=== PATIENT | female | born 1955 | race Caucasian/White ===

== ENCOUNTER 2024-02-01 13:50 | Observation (INO) ==
[2024-02-01 14:35] LABS: ABS Lymphocytes 0.8 10^3/uL (1.0-4.8); ABS Monocytes 0.2 10^3/uL (0.0-0.9); ABS Neutrophils 1.9 10^3/uL (1.5-7.6); Eosinophil % 0.2 %; Hematocrit 38.6 % (35-45); Hemoglobin 13.2 g/dL (11.5-14.3); Lymphocyte % 27.8 %; Mean Corpuscular Hemoglobin 28.9 pg (27-33); Mean Corpuscular Hgb Conc 34.1 g/dL (31-36); Mean Corpuscular Volume 84.7 fL (80-97); Mean Platelet Volume 7.6 fL (7.5-11.2); Nucleated Red Blood Cells % 0.1 %/100WBC (0.0-0.8); Platelet Count 192 10^3/uL (150-450); Red Blood Count 4.56 10^6/uL (3.63-4.92); Red Cell Distribution Width 14.1 % (12-17); White Blood Count 2.9 10^3/uL (3.8-11.8)
[2024-02-01 14:50] LABS: INR 0.98 (0.83-1.13)
[2024-02-01] MEDS: Ondansetron 4 mg VIAL 2 MG/ML 2 ml VIAL IV ONE (15:02)
[2024-02-01] MEDS: NS 0.9% 1000 ml BAG 1,000 ML IV ONE ×2 (15:03→18:11)
[2024-02-01 15:42] LABS: Albumin 4.2 g/dL (3.2-5.2); Albumin/Globulin Ratio 1.7 (1-3); Globulin 2.5 g/dL (2-4); Potassium 4.4 mmol/L (3.5-5.0); Total Bilirubin 0.5 mg/dL (0.2-1.0); Total Protein 6.7 g/dL (6.4-8.9); eGFR CKD-EPI 61.7 (>60)
[2024-02-01 16:30] LABS: High Sensitivity Troponin 1 Hr 56 pg/mL (<15)
[2024-02-01 18:13] LABS: High Sensitivity Troponin 3 Hr 83 pg/mL (<15)
[2024-02-01 18:14] LABS: Urine Appearance Clear; Urine Bilirubin Negative (Negative); Urine Blood Negative (Negative); Urine Color Yellow; Urine Glucose Negative (Negative); Urine Ketones Negative (Negative); Urine Nitrite Negative (Negative); Urine Protein Negative (Negative); Urine Specific Gravity 1.024 (1.002-1.030); Urine Urobilinogen Negative (Negative); Urine pH 5.5 (5.0-8.0)
[2024-02-01] MEDS: Iohexol 350 (CONTRAST) 500 ML MDV IV ONE (20:26)
[2024-02-01 20:49] LABS: Magnesium 1.9 mg/dL (1.9-2.7)
[2024-02-01] MEDS ORDERED: Senna TAB 8.6 mg TAB PO PRN (20:54)
[2024-02-01] MEDS ORDERED: Ondansetron 4 mg VIAL 2 MG/ML 2 ml VIAL IV PRN (20:54)
[2024-02-01 21:04] LABS: TSH Ultra Thyroid Stim Horm 1.12 mcIU/mL (0.34-5.60)
[2024-02-01] MEDS: Lactated Ringers 1000 ml BAG 1,000 ML IV SCH (21:44)
[2024-02-02 05:54] LABS: Hematocrit 32.2 % (35-45); Mean Corpuscular Hgb Conc 34.1 g/dL (31-36); Mean Corpuscular Volume 84.9 fL (80-97); Mean Platelet Volume 7.5 fL (7.5-11.2); Platelet Count 170 10^3/uL (150-450); Red Blood Count 3.79 10^6/uL (3.63-4.92); Red Cell Distribution Width 13.8 % (12-17); White Blood Count 2.2 10^3/uL (3.8-11.8)
[2024-02-02 06:55] LABS: Calcium 7.9 mg/dL (8.6-10.3); Creatinine, Serum 0.96 mg/dL (0.51-0.95); eGFR CKD-EPI 64.8 (>60)
[2024-02-02 07:25] LABS: ABS Neutrophils 0.5 10^3/uL (1.5-7.6)
[2024-02-02 07:29] LABS: ABS Lymphocytes 1.4 10^3/uL (1.0-4.8); ABS Monocytes 0.3 10^3/uL (0.0-0.9); Eosinophil % 1.4 %; Lymphocyte % 63.3 %; Nucleated Red Blood Cells % 0.2 %/100WBC (0.0-0.8)
[2024-02-02 08:01] LABS: C Reactive Protein 2.77 mg/L (<8.01)
[2024-02-02] MEDS: buPROPion SR 200 mg TAB.SR PO SCH (09:32)
[2024-02-02] MEDS: Enoxaparin 40 MG/0.4 ML SYR SUBCUT SCH (09:32)
[2024-02-02] MEDS: Sulfur Hexaflouride MICROSPHR 25 MG VIAL IV ONE (10:10)
[2024-02-02] MEDS: Cefepime 2 GM in Dextrose 2 GM/50 ML BAG IV SCH (10:25)
[2024-02-02 11:19] LABS: High Sensitivity Troponin 1 Hr 42 pg/mL (<15)
[2024-02-02 19:22] LABS: Ferritin 7.5 ng/mL (11-307)
[2024-02-02 19:26] LABS: Folate 11.31 ng/mL (5.90-24.80)
[2024-02-03] MEDS: Cefepime 2 GM in Dextrose 2 GM/50 ML BAG IV SCH (01:28)
[2024-02-03 06:01] LABS: Hematocrit 31.7 % (35-45); Hemoglobin 10.7 g/dL (11.5-14.3); Mean Corpuscular Hemoglobin 28.8 pg (27-33); Mean Corpuscular Hgb Conc 33.8 g/dL (31-36); Mean Corpuscular Volume 85.2 fL (80-97); Mean Platelet Volume 7.9 fL (7.5-11.2); Platelet Count 161 10^3/uL (150-450); Red Blood Count 3.72 10^6/uL (3.63-4.92); Red Cell Distribution Width 13.9 % (12-17); White Blood Count 2.3 10^3/uL (3.8-11.8)
[2024-02-03 06:27] LABS: Calcium 8.3 mg/dL (8.6-10.3); Creatinine, Serum 0.93 mg/dL (0.51-0.95); Potassium 3.9 mmol/L (3.5-5.0); eGFR CKD-EPI 67.4 (>60)
[2024-02-03 08:12] LABS: ABS Lymphocytes 1.2 10^3/uL (1.0-4.8); ABS Monocytes 0.2 10^3/uL (0.0-0.9); ABS Neutrophils 0.8 10^3/uL (1.5-7.6); Eosinophil % 1.6 %; Lymphocyte % 52.5 %; Nucleated Red Blood Cells % 0.2 %/100WBC (0.0-0.8)
[2024-02-03 09:31] VITALS: BP 127/66
[2024-02-03 10:33] LABS: HDL Cholesterol 35.9 mg/dL
[2024-02-07 12:05] LABS: Anaplasma phagocytophilum Negative (Negative); B. miyamotoi PCR, B Negative (Negative); Babesia divergens/MO-1 Negative (Negative); Babesia ducani Negative (Negative); Ehrlichia chaffeensis Negative (Negative); Ehrlichia ewingii/canis Negative (Negative); Ehrlichia muris eauclairensis Negative (Negative)
== END 2024-02-03 12:05 | disposition home or self-care (01) ==
LOC: EDHOLD 13:50 → ED 13:50 → SUATTDRO 20:28 → EDHOLD 02-02 06:13 → MEDTELE 02-02 19:23
PROVIDERS: ADMIT Internal Medicine; ATTEND Student in an Organized Health Care Education/Training Program